=== PATIENT | male | born 1980 | race Two or more races ===

== ENCOUNTER 2017-05-22 12:06 | Emergency (ER) | payer OTHER ==
[~2017-05-22] VITALS: Ht 160 cm; Wt 83.9 kg
[2017-05-22 12:11] VITALS: BP 116/69
[2017-05-22] MEDS ORDERED: KETOROLAC 30 MG/1 ML IM ONE (12:30)
[2017-05-22] MEDS ORDERED: KETOROLAC 30 MG/1 ML ONE (12:40)
== END 2017-05-22 13:53 | disposition home or self-care (01) ==
LOC: ED 13:43
DX: M79.672 Pain in left foot (principal); F17.200 Nicotine dependence, unspecified, uncomplicated
CPT/HCPCS: 73630; 96372; 99284; J1885

== ENCOUNTER 2020-10-23 12:09 | Outpatient (CLI) | payer OTHER | END 2020-10-23 23:59 | disposition home or self-care (01) | LOC: RAD 12:09 | PROVIDERS: ATTEND Nurse Practitioner Gerontology | DX: Z97.8 Presence of other specified devices (principal) | CPT/HCPCS: 70250; 71045; 72040; 74018 ==